=== PATIENT | male | born 1950 | race Caucasian/White ===

== ENCOUNTER 2020-05-18 22:28 | Inpatient (IN) | payer MEDICARE, MEDICAID ==
[~2020-05-18] VITALS: Ht 180.3 cm; Wt 89.4 kg
[2020-05-19 00:08] LABS: Basophils # (auto) 0 10 ^3/uL (0-0.2); Basophils % (auto) 0.2 % (0.0-2.0); Eosinophils # (auto) 0.1 10 ^3/uL (0-0.8); Eosinophils % (auto) 0.7 % (0.0-7.0); Hemoglobin 12.3 g/dL (13.5-17.5); Mean Corpuscular Hemoglobin 28.7 pg (28.0-32.0); Mean Corpuscular Hgb Conc. 32.3 g/dL (32.0-36.0); Mean Corpuscular Volume 88.9 fL (80.0-100.0); Monocytes # (auto) 0.6 10 ^3/uL (0-1.3); Monocytes % (auto) 6.2 % (0.0-12.0); Neutrophils # (auto) 7.4 10 ^3/uL (1.6-8.6); Neutrophils % (auto) 81.9 % (37.0-80.0); Platelet Count (auto) 207 10^3/uL (140-450); Red Blood Cells 4.28 10^6/uL (4.5-5.90); Red Cell Distribution Width 14.3 % (11.8-14.3)
[2020-05-19 00:26] LABS: Alanine Aminotransferase 33 U/L (16-61); Albumin 3.6 g/dL (3.4-5.0); Anion Gap 7 (5-15); Aspartate Aminotransferase 75 U/L (15-37); BUN/Creatinine Ratio 15.3; Blood Urea Nitrogen 36 mg/dL (7-18); Calcium 9.2 mg/dL (8.5-10.1); Carbon Dioxide 26 mmol/L (21-32); Chloride 104 mmol/L (98-107); GFR African American 36 mL/min; GFR Non-African American 29 mL/min; Glucose 189 mg/dL (74-106); INR 1.08 (0.9-1.15); Magnesium 1.8 mg/dL (1.6-2.6); Partial Thromboplastin Time 28.9 sec (23.0-31.2); Potassium 4.2 mmol/L (3.5-5.1); Sodium 137 mmol/L (136-145)
[2020-05-19 00:31] LABS: Alkaline Phosphatase 24 U/L (45-117); Bilirubin, Total 0.4 mg/dL (0.2-1.0)
[2020-05-19] MEDS ORDERED: DEXTROSE (50%) 50ML SYRG IV PRN (03:00)
[2020-05-19] MEDS ORDERED: ONDANSETRON HCL 4 MG/2 ML VIAL IV PRN (03:00)
[2020-05-19] MEDS ORDERED: SODIUM CHLORIDE 0.9% 500 ML IV ONE (03:00)
[2020-05-19] MEDS: SODIUM CHLORIDE 0.9% 1,000 ML IV SCH ×4 (03:28→05:42)
--- NOTE | 2020-05-19 04:45 | NUR ---
MS admit from ER WALLACE,JOSE DANIEL admitted to tele/MS after SBAR received. Patient oriented to JUANCARLOS HARRELL, RN primary RN, unit, room, bed, and unit policies regarding patient care and visiting hours. Patient weighed by bedscale and encouraged to call if they need something. All questions and concerns addressed, patient verbalized understanding.
--- NOTE | 2020-05-19 04:46 | NUR ---
Admission Patient does not have name and doses of home medication. Educated patient to call family member in the morning to get a list of the medications. Will endorsed to dayshift nurse.
[2020-05-19 05:00] VITALS: BP 85/60
[2020-05-19 05:05] LABS: Urine Bacteria FEW /hpf (None Seen); Urine Blood Negative /uL (Negative); Urine Hyaline Cast MOD /lpf (0 - 2); Urine Specific Gravity 1.017 (1.001-1.035); Urine WBC <1 /hpf (0 - 3)
[2020-05-19 06:30] VITALS: BP 98/53
--- NOTE | 2020-05-19 06:30 | NUR ---
Wound Pictures Wound picture taken for Left knee and right lopez
[2020-05-19] MEDS: InsuLIN REG 1unit/0.01ml Soln (100units/ml) SC SCH ×2 (06:34→11:30)
[2020-05-19] MEDS: ACCU-CHEK COMFORT CURVE STRIP VI SCH ×2 (06:34→11:30)
[2020-05-19 08:00] VITALS: BP 103/54
--- NOTE | 2020-05-19 08:15 | NUR ---
Opening Shift Note Assumed care of patient, awake and alert. No S/S of distress/SOB or pain. Instructed on POC and to call for assist PRN. Bed at lowest locked position and call light within reach. Patient requesting to be left alone for a while, he states" i only slept 2hours". Will continue to monitor for changes Q1hr and PRN.
[2020-05-19 09:00] VITALS: BP 103/54
[2020-05-19] MEDS ORDERED: ASPirin 81 mg TAB PO SCH (10:00)
[2020-05-19] MEDS ORDERED: PANTOPRAZOLE 40 MG TAB PO SCH (10:00)
--- NOTE | 2020-05-19 11:30 | NUR ---
Patient is requesting to leave AMA, educated patient on risks of injury and possible . Patient has agreed to wait until 1230 for a Doctor, otherwise patient will leave. paged .
--- NOTE | 2020-05-19 11:56 | NUR ---
SPO2 turned supplemental off. Patient on RA, will continue to monitor. Addendum: 05/19/20 at 1211 by Marina Cruz RN spoke to Dr. Longoria. informed /aware of patients plan and O2 situation. Endorsed care to Nancy BUSTAMANTE.
--- NOTE | 2020-05-19 12:42 | NUR ---
PT AGAIN REQUESTING TO LEAVE AMA. SPOKE WITH DR. GUZMAN VIA TELEPHONE. PER DR. GUZMAN HAVE PT SIGN AMA IF HE DOESN'T WANT TO WAIT. PT NOW HAS O2 SATURATION OF 97% AND HR OF 88. PT DENIES SOB, COUGH, OR CHEST PAIN AT THIS TIME. EDUCATED PT RE: RISKS OF LEAVE AMA WHICH CAN INCLUDE INJURY OR . PT VERBALIZED UNDERSTANDING BUT STILL WISHING TO LEAVE AMA. WILL HAVE PT SIGN OUT WITH CONSENT FROM MD. WILL INFORM PRIMARY RN.
--- NOTE | 2020-05-19 12:58 | NUR ---
AMA Note JOSE DANIEL WALLACE states they want to leave the hospital Against Medical Advice (AMA). Patient encouraged to stay for further treatment/stabilization. DR. GUZMAN previously notified of patient's wishes. Patient advised of the risks and benefits of leaving AMA. IV removed, catheter intact, no trauma to site noted, and patient tolerated well. Patient encouraged to return to the ER if symptoms do not improve or worsen. Patient verbalized understanding. pt escorted to elevators. Pt ambulating with slow steady gait. no S/S of SOB/Distress noted upon departure.
[2020-05-19] MEDS ORDERED: ATORVASTATIN 20 MG TAB PO SCH (22:00)
== END 2020-05-19 12:43 | disposition left against medical advice (07) | DRG 948 ==
LOC: EDBD 22:28 → ER 22:28 → OVERFLOW 22:29 → EAST 05-19 04:30
PROVIDERS: ADMIT Nurse Practitioner; ATTEND Internal Medicine
DX: R53.1 Weakness (principal); I95.9 Hypotension, unspecified; E11.22 Type 2 diabetes mellitus with diabetic chronic kidney disease; N18.9 Chronic kidney disease, unspecified; Z20.828 Contact with and (suspected) exposure to other viral communicable diseases; I12.9 Hypertensive chronic kidney disease with stage 1 through stage 4 chronic kidney disease, or unspecified chronic kidney disease; E78.5 Hyperlipidemia, unspecified; F17.210 Nicotine dependence, cigarettes, uncomplicated; Z53.29 Procedure and treatment not carried out because of patient's decision for other reasons; Z88.1 Allergy status to other antibiotic agents
CPT/HCPCS: 36415; 70450; 71045; 80053; 81001; 82728; 82962; 83605; 83735; 83880; 84443; 84484; 85025; 85379; 85610; 85730; 87040; 87426; 93005; 96360; G0378; J1815